=== PATIENT | male | born 1970 | race Caucasian/White ===

== ENCOUNTER 2017-09-22 05:36 | Emergency (ER) | payer OTHER ==
[~2017-09-22] VITALS: Ht 170.2 cm; Wt 77.1 kg
--- NOTE | ~2017-09-22 | EXE ---
[facility] [employer] [place] [address] STRESS ECHOCARDIOGRAM Name: CHELO PALMA Room #: REG Palak#: [id number] Admission: 09/22/17 Attend Phys: Discharge: Date of : 74 Date of Service: 09/22/17 [facility] Report #: [id number] THIS REPORT FOR: //name// APPROVED REPORT Study performed: 09/22/2017 08:28:48 Exam: Stress Echocardiogram Indication: Chest pain Patient Location: Echo lab Stress Nurse: Tory Braxton RN Room #: ER 9 Status: routine Ht: 5 ft 7 in HR: 83 bpm BP: 126/86 mmHg Medical History Medical History: HTN, Hyperlipidemia Cardiac Risk Factors: HTN, Hyperlipidemia Procedure The patient underwent an Exercise Stress Test using the Jagdish Protocol. Blood pressure, heart rate, and EKG were monitored. An Echocardiogram was performed by auto emissions technician in four stages in quad fashion. At peak stress, four selected images were obtained and placed side by side with resting images for comparison. Stress Test Details Stress Test: Exercise stress testing was performed using a Jagdish protocol. HR Resting HR: 83 bpm Max Heart Rate (APMHR): 176 bpm Max HR Achieved: 151 bpm Target HR (85% APMHR): 149 bpm % of APMHR: 85 Recovery HR: 98 bpm HR response to stress: Normal HR response to stress BP Resting BP: 126/86 mmHg Max BP: 200/90 mmHg Recovery BP: 160/100 mmHg ECG Resting ECG: Sinus Rhythm [facility] [address] [place] [address] STRESS ECHOCARDIOGRAM Name: CHELO PALMA Room #: MANPREET CASSIA Cid#: [id number] Admission: 09/22/17 Attend Phys: Discharge: Date of : 74 Date of Service: 09/22/17 [facility] Report #: [id number] Stress ECG: Sinus Tachycardia Arrhythmia: None Recovery ECG: Sinus Rhythm Clinical Reason for Termination: Maximal effort Exercise duration: 11 min 06 sec Highest Stage Achieved: Stage 4: 4.2 mph at 16% grade. Exercise capacity: 13.7 METs Overall Exercise Capacity for Age: Good Stress ECG Conclusion 1. Subjectively negative for ischemia 2. Elective cardiographic C negative for ischemia 3. Satisfactory functional capacity Pre-Stress Echo The resting Echocardiogram showed normal left ventricular contractility with an estimated Ejection Fraction of about >55%. There is concentric left ventricular hypertrophy noted Post-Stress Echo The stress Echocardiogram showed normal left ventricular contractility with an estimated Ejection Fraction of about 60-65%. Clinical Normal augmentation of myocardial wall segments using a 17 segment model. Conclusion Clinical Response: Non-ischemic Exercise Capacity: satisfactory Stress ECG Response: Non-ischemic Stress Echo Images: Non-ischemic 1. Low risk study No prior study available for comparison. Other Information Study Quality: Good <Conclusion> 1. Low risk study <ELECTRONICALLY SIGNED> By: Tyrone Ballard MD 09/22/17 1007 1007 1007 Tyrone Ballard MD /INF
--- NOTE | ~2017-09-22 | EKG ---
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 Technologist: Melissa MAURICIO : 1970 Requested By: Edilson Nogueira Order Number: [id number] MD: Canelo Echeverria Measurements Intervals [place] Rate: 83 P: -4 MD: 193 QRS: -10 QRSD: 105 T: 19 QT: 386 QTc: 454 Interpretive Statements Sinus rhythm ST elev, probable normal early repol pattern No previous ECG available for comparison Electronically Signed On 09-22-2017 7:54:00 CDT by Canelo Echeverria [email or web address] <ELECTRONICALLY SIGNED> By: Canelo Echeverria MD 09/22/17 0754 0534 0534 Canelo Echeverria MD /STEFANIE
[2017-09-22 05:53] LABS: ABSOLUTE NEUTROPHILS 10.1 thou/uL (1.4-8.2); BASOPHILS 0.7 % (0.0-2.0); EOSINOPHILS 3.5 % (0.0-3.0); HEMOGLOBIN 12.6 gm/dL (14.0-18.0); LYMPHOCYTES 16.7 % (24.0-44.0); MCH 31.2 pg (26.0-34.0); MCHC 33.2 g/dL (28.0-37.0); MCV 93.9 fL (80.0-100.0); MONOCYTES 3.9 % (1.0-8.0); PLATELET COUNT 174 thou/uL (150-400); POLYS 75.2 % (36.0-66.0); RBC 4.04 mil/uL (4.50-6.00); RDW 12.6 % (10.5-14.5); WBC 13.5 thou/uL (4.0-11.0)
[2017-09-22] MEDS ORDERED: LIPITOR 20 MG T20 M1 PO (05:58)
[2017-09-22] MEDS ORDERED: ALLOPURINOL 10100 M1 PO (05:58)
[2017-09-22] MEDS ORDERED: LOPRESSOR25 PO (06:00)
[2017-09-22] MEDS ORDERED: RENVELA800 MG PO (06:01)
[2017-09-22] MEDS ORDERED: RENAL VITAMIN0.8 MG PO (06:01)
[2017-09-22 06:02] LABS: ANION GAP 10 mmol/L (7-16); BUN 26 mg/dL (7-18); CALCIUM 9.8 mg/dL (8.5-10.1); CHLORIDE 97 mmol/L (98-107); CO2 29 mmol/L (21-32); CREATININE 7.5 mg/dL (0.7-1.3); GLUCOSE 117 mg/dL (74-106); POTASSIUM 3.9 mmol/L (3.5-5.1); SODIUM 136 mmol/L (136-145)
[2017-09-22 06:11] LABS: SGOT 19 U/L (15-37); SGPT 33 U/L (30-65); TOTAL BILIRUBIN 0.6 mg/dL (<0.1-1.0); TROPONIN-I < 0.04 ng/mL (<0.06)
[2017-09-22] MEDS ORDERED: PROTONIX40 M1 PO (10:40)
[2017-09-22 10:53] VITALS: BP 129/84
== END 2017-09-22 10:55 | disposition still patient (30) ==
LOC: ER 05:36
PROVIDERS: Emergency Medicine
DX: R07.9 Chest pain, unspecified (principal); E78.00 Pure hypercholesterolemia, unspecified; I10 Essential (primary) hypertension; Z88.8 Allergy status to other drugs, medicaments and biological substances; Z91.013 Allergy to seafood

== ENCOUNTER 2017-10-23 13:36 | Inpatient (IN) | payer OTHER ==
[~2017-10-23] VITALS: Ht 170.2 cm; Wt 77.6 kg
--- NOTE | ~2017-10-23 | EKG ---
[address] [place] [address] ELECTROCARDIOGRAM REPORT Name: CHELO PALMA Room #: 355-P ADM IN M.R.#: [id number] Admission: 10/23/17 Attend Phys: Zak Hanson MD Discharge: Date of : 74 Report #: [id number] THIS REPORT FOR: //name// [facility] ED Test Date: 2017-10-23 Test Time: 14:01:06 Pat Name: CHELO PALMA Department: Room: Gender: M Platform Builder: jldamaso : 1970 Requested By: Wade Kovacs Order Number: [id number] MD: John Hoyos Measurements Intervals [place] Rate: 86 P: 35 NM: 188 QRS: -8 QRSD: 99 T: 30 QT: 356 QTc: 426 Interpretive Statements Sinus rhythm Early repolarization Compared to ECG 09/22/2017 05:34:20 No significant changes Electronically Signed On 10-24-2017 7:55:40 CDT by John Hoyos [email or web address] <ELECTRONICALLY SIGNED> By: John Hoyos MD, [facility] 10/24/17 0755 140 00 John Hoyos MD, [facility] /EPI
--- NOTE | ~2017-10-23 | PATH ---
[facility] [address] [place] [address] PATHOLOGY RPT PROCEDURE Name: ALISON PALMA Room #: 355-P DIS IN M.R.#: [id number] Admission: 10/23/17 Date of : 74 Discharge: 10/25/17 Report #: [id number] Path Case #: [id number] [facility] Accession Number: [id number] . 01 Material submitted: . GASTRIC ULCER BX R/O H. PYLORI . 01 Clinical history: . Pre-Op DX: Atypical chest pain Post-OP DX: Gastric ulcer . 02 Diagnosis: Gastric mucosa, gastric ulcer rule out H. pylori, endoscopic biopsy: - Moderate reactive gastropathy with villous architecture and focal intestinal metaplasia (please see comment). - Negative for atrophy or dysplasia. - Negative for Helicobacter pylori (properly controlled immunohistochemical stain performed). (IUV:david; 10/27/2017) QMS/10/27/2017 . 02 Comment: The small bowel-type architecture with focal intestinal metaplasia may be a sampling of the gastric mucosa from the "pyloric outlet". Please correlate with endoscopic findings. . 02 Electronically signed: . Kirstie Siu MD, Pathologist NPI- [id number] . 01 Gross description: . Received in formalin labeled "Alison Palma, gastric ulcer BX, rule out H. pylori," are 3 segments of landin soft tissue measuring 1.3 x 0.5 x 0.3 cm in aggregate dimensions and ranging from 0.4 to 0.5 cm in maximum dimension. The specimen is submitted entirely in cassette A1. (TSD; 10/25/2017) TOB/TOB . 02 Pathologist provided ICD-10: K31.9 . 02 CPT . 118468, W91886 Performed at: [address] [id number] MD Stan Lynch MD Phone: [phone] [facility] [address] [place] [address] PATHOLOGY RPT PROCEDURE Name: ALISON PALMA Room #: 355-P [facility] IN M.R.#: [id number] Admission: 10/23/17 Date of : 74 Discharge: 10/25/17 Report #: [id number] Path Case #: [id number] Performed at: 02 [facility] [address] [place], [place] [id number] MD Kirstie Siu MD Phone: [phone]
--- NOTE | ~2017-10-23 | 2DMMODE ---
[facility] [address] [employer] [place] [address] 2 D/M-MODE ECHOCARDIOGRAM Name: CHELO PALMA Room #: 355-P ADM IN M.R.#: [id number] Admission: 10/23/17 Attend Phys: Zak Hanson, Discharge: Date of : 74 Date of Service: 10/24/17 1117 Report #: [id number] THIS REPORT FOR: //name// APPROVED REPORT Study performed: 10/24/2017 10:34:56 EXAM: Comprehensive 2D, Doppler, and color-flow Echocardiogram Patient Location: Echo lab Room #: 355 Status: routine BSA: 1.89 HR: 81 bpm BP: 120/79 mmHg Rhythm: NSR Other Information Study Quality: Good Indications Chest pain, possible pericarditis, pericardial fluid noted on CT, new onset Afib. Hx: HTN, HLP, ESRD 2D Dimensions RVDd: 37.45 mm LVEF(%): 70.36 (>50%) IVSd: 12.31 (7-11mm) LVOT Diam: 22.84 (18-24mm) LVDd: 47.32 mm PWd: 11.80 (7-11mm) Ascending Ao: 31.42 (22-36mm) LVDs: 28.48 (25-40mm) Aortic Root: 34.52 mm Feliciano's LVEF: 70.36 % Volumes Left Atrial Volume (Systole) Single Plane 4CH: 43.58 mL Single Plane 2CH: 80.50 mL LA ESV Index: 34.00 mL/m2 Aortic Valve AoV Peak Mariusz.: 1.47 m/s AO Peak Gr.: 8.59 mmHg LVOT Max P.03 mmHg LVOT Max V: 1.33 m/s DANIELLE Vmax: 3.71 cm2 Mitral Valve E/A Ratio: 1.4 [facility] [place] [address] 2 D/M-MODE ECHOCARDIOGRAM Name: CHELO PALMA Room #: 355-P [facility] IN ..#: [id number] Admission: 10/23/17 Attend Phys: Zak Hanson, Discharge: Date of : 74 Date of Service: 10/24/17 1117 Report #: [id number] MV Decel. Time: 189.58 ms MV E Max Mariusz.: 0.82 m/s MV A Mariusz.: 0.60 m/s MV PHT: 54.98 ms IVRT: 86.51 ms Pulmonary Valve PV Peak Mariusz.: 1.10 m/s PV Peak Gr.: 4.86 mmHg Pulmonary Vein P Vein S: 0.51 m/s P Vein D: 0.56 m/s P Vein S/D Ratio: 0.91 Tricuspid Valve TR Peak Mariusz.: 1.81 m/s RAP Estimate: 5.00 mmHg TR Peak Gr.: 13.11 mmHg PA Pressure: 18.00 mmHg Left Ventricle The left ventricle is normal size. There is normal LV segmental wall motion. Mild concentric left ventricular hypertrophy. Left ventricular systolic function is normal. LVEF is 60%. The left ventricular diastolic function is normal. Right Ventricle The right ventricle is normal size. The right ventricular systolic function is normal. Atria The left atrium size is normal. The right atrium size is normal. Aortic Valve The aortic valve is normal in structure. No aortic regurgitation is present. There is no aortic valvular stenosis. Mitral Valve The mitral valve is normal in structure. Trace mitral regurgitation. Tricuspid Valve The tricuspid valve is normal in structure. Trace tricuspid regurgitation. Estimated PAP is 18mmHg. Pulmonic Valve [address] [address] 2 D/M-MODE ECHOCARDIOGRAM Name: CHELO PALMA Room #: 355-P [facility].#: [id number] Admission: 10/23/17 Attend Phys: Zka Hanson, Discharge: Date of : 74 Date of Service: 10/24/17 1117 Report #: [id number] The pulmonary valve is normal in structure. Trace pulmonic regurgitation. Great Vessels The aortic root is normal in size. The ascending aorta is normal in size. IVC is normal in size and collapses >50% with inspiration. Pericardium Trace to small pericardial effusion noted. <Conclusion> The left ventricle is normal size. Mild concentric left ventricular hypertrophy. LVEF is 60%. The left ventricular diastolic function is normal. The right ventricle is normal size. The left atrium size is normal. The aortic valve is normal in structure. Trace mitral regurgitation. Trace tricuspid regurgitation. Estimated PAP is 18mmHg. Trace to small pericardial effusion noted. <ELECTRONICALLY SIGNED> By: Vidal Robles MD, FACC 10/24/17 1117 16 16 Vidal Robles MD, FACC /INF
--- NOTE | ~2017-10-23 | P ---
[facility] [place] [address] PROCEDURE REPORT Name: CHELO PALMA Room #: 355-P ADM IN M.R.#: [id number] Admission: 10/23/17 Attend Phys: Zak Hanson MD Discharge: Date of : 74 Report #: [id number] THIS REPORT FOR: //name// CC: Rafat Hanson Physician staff SONIA García MD DATE OF SERVICE: 10/25/2017 BRIEF HISTORY: The patient is a 46-year-old male with atypical chest pain. He was seen in the Emergency Room 3-4 weeks ago and given pantoprazole. In spite of using pantoprazole, he was admitted recently with atypical chest pain and upper abdominal pain with burning-type symptoms. PREOPERATIVE DIAGNOSIS: Atypical chest pain and upper abdominal pain. POSTOPERATIVE DIAGNOSIS: Two small antral ulcers, nonbleeding. MEDICATIONS: Deep sedation with propofol per anesthesia. SPECIMEN: Biopsies of ulcers. ESTIMATED BLOOD LOSS: 3 mL PROCEDURE: Esophagogastroduodenoscopy with biopsy. FINDINGS: Prior to propofol sedation, procedure of upper endoscopy was discussed with the patient as well as potential risks and its complications. He indicates he understands and desires to proceed. With the patient in left lateral decubitus position, the Olympus video endoscope was inserted in the cervical esophagus under direct vision without difficulty. Examination of this organ through its entire length revealed normal esophageal mucosa down the squamocolumnar junction. Squamocolumnar junction was carefully examined, and there was no evidence of esophagitis or Box mucosa. Hiatus hernia was not seen. The scope was advanced in the stomach, which was examined on end view as well as retroflexed views. In the antrum, there were 2 punctate ulcers in the prepyloric antrum. This may be significant as the patient has been on pantoprazole for 3-4 weeks at this time. It is possible these may have been larger in the past. They had a benign appearance and biopsies were obtained. Examination of the remainder of the stomach on end view as well as retroflexed views revealed normal mucosa. Examination of the proximal stomach on retroflexed views did not reveal any mass lesions. The pylorus, duodenal bulb and postbulbar sweep were all inspected and noted to be unremarkable. At [address] [address] PROCEDURE REPORT Name: CHELO PALMA Room #: 355-P [facility] IN M.R.#: [id number] Admission: 10/23/17 Attend Phys: Zak Hanson MD Discharge: Date of : 74 Report #: [id number] that point, the scope was slowly withdrawn and careful circumferential views confirmed the above findings. The patient tolerated the procedure well. CONDITION OF THE PATIENT UPON DISCHARGE: Following procedure, the patient drowsy, aroused and conversant and will be discharged home when fully ambulatory. DISPOSITION: Two small ulcers identified. We will have him continue pantoprazole. Burning symptoms are suggestive of peptic mucosal disease or reflux disease. Esophagitis was not seen today. He possibly may have had esophagitis, which has healed since starting pantoprazole. However, he has more pain, I would consider ultrasound of the abdomen for further evaluation of his symptoms. We will follow up on biopsies and make further recommendations. <ELECTRONICALLY SIGNED> By: Bon Gary MD 10/25/17 1710 1214 1226 Bon Gary MD /nt
--- NOTE | ~2017-10-23 | HC ---
[facility] [place] [address] CONSULTATION Name: CHELO PALMA Room #: 355-P ADM IN M.R.#: [id number] Admission: 10/23/17 Attend Phys: Zak Hanson MD Discharge: Date of : 74 Report #: [id number] THIS REPORT FOR: //name// CC: Zak Hanson Physician staff SONIA MARIN REASON FOR CONSULTATION: End-stage renal disease. HISTORY OF PRESENT ILLNESS: A 46-year-old with past medical history of hypertension who has been on dialysis for the last few years. He dialyzes every Tuesday, Tuesday and Tuesday. He presented with some chest discomfort, inability to lay down. He reported orthopnea. This has been going on with him for the last couple of weeks. No associated nausea or vomiting. It is somewhat relieved by leaning forward. He denies fever. No contact with sick people. He was evaluated by the ER staff a couple of days ago and a stress cardiac echo was negative. He did have some GI illness in the form of heartburn and was told that he had reflux and was given Protonix. He never had any similar episodes like the symptoms that he presented with yesterday. He has never had any cardiac catheterization, EGD in the past. No reported hematemesis or melena. No radiation of his chest discomfort. No palpitation. No dizziness. PAST MEDICAL HISTORY: 1. Hypertension. 2. End-stage renal disease, maintained on hemodialysis. 3. Hyperlipidemia. 4. AV fistula. MEDICATIONS: 1. Metoprolol. 2. Renvela. 3. Lipitor. ALLERGIES: SHELLFISH. SOCIAL HISTORY: He is still working. No drug or alcohol abuse. REVIEW OF SYSTEMS: GENERAL: No fever or chills. CARDIOVASCULAR: As per the history of present illness. PULMONARY: No cough or hemoptysis. GASTROINTESTINAL: Occasional heartburn, but no nausea or vomiting. GENITOURINARY: He is still making urine. No frequency, no urgency. MUSCULOSKELETAL: No back pain, no morning stiffness. SKIN: No rash or ulcerations. NEUROLOGICAL: No headache, no dizziness. [facility] [address] [place] [address] CONSULTATION Name: CHELO PALMA Room #: 355-P [facility] IN .R.#: [id number] Admission: 10/23/17 Attend Phys: Zak Hanson MD Discharge: Date of : 74 Report #: [id number] FAMILY HISTORY: Significant for hypertension. PHYSICAL EXAMINATION: GENERAL: He is alert, oriented, in no apparent distress. VITAL SIGNS: Blood pressure 120/79, temperature 36.4. HEAD AND NECK: No jugular venous distention, no bruit, no thyromegaly. CHEST: Clear to auscultation bilaterally. CARDIOVASCULAR: Regular with no rub. ABDOMEN: Soft, nontender with no hepatosplenomegaly. LOWER EXTREMITIES: No edema. LABORATORY DATA: Reviewed. White blood cell count 8, hemoglobin 10. Sodium 137, potassium 4.8, BUN 53, creatinine 12.3. CT of the chest revealed lower lung patchy infiltrate. Mild cardiomegaly. Cardiac echo pending. ASSESSMENT, IMPRESSION AND PLAN: 1. End-stage renal disease. 2. Hypertension. 3. Hyperlipidemia. 4. Chest pain and shortness of breath of unclear source. 5. Agree with the cardiac echo evaluation to evaluate the pericardium. 6. Resume his blood pressure medications. 7. Cultures were obtained and coverage for antibiotic was initiated. 8. GI evaluation. 9. Dialysis will be arranged today. 10. Discontinue colchicine. 11. Discontinue ibuprofen. 12. No further Toradol. 13. We will continue to follow along. <ELECTRONICALLY SIGNED> By: Rafat Spence MD 10/25/17 0924 0758 0957 Rafat Spence MD /nt
--- NOTE | ~2017-10-23 | EKG ---
[address] [address] ELECTROCARDIOGRAM REPORT Name: CHELO PALMA Room #: 355-P ADM IN M.R.#: [id number] Admission: 10/23/17 Attend Phys: Zak Hanson MD Discharge: Date of : 74 Report #: [id number] THIS REPORT FOR: //name// [facility] Test Date: 2017-10-24 Test Time: 09:03:35 Pat Name: CHELO PALMA Department: Room: 355 P Gender: M Choir Singer: : 1970 Requested By: Zak Hanson Order Number: [id number] MD: John Hoyos Measurements Intervals [place] Rate: 120 P: IA: QRS: 1 QRSD: 102 T: 31 QT: 348 QTc: 492 Interpretive Statements Atrial fibrillation Borderline prolonged QT interval Compared to ECG 10/23/2017 14:01:06 Sinus rhythm no longer present Electronically Signed On 10-24-2017 17:04:16 CDT by John Hoyos [email or web address] <ELECTRONICALLY SIGNED> By: John Hoyos MD, [facility] 10/24/17 1704 2 2 John Hoyos MD, [facility] /EPI
[~2017-10-23 13:36] MED LIST: ALLOPURINOL 10100 M1 PO; LIPITOR 20 MG T20 M1 PO; LOPRESSOR25 PO; PROTONIX40 M1 PO; RENAL VITAMIN0.8 MG PO; RENVELA800 MG PO
[2017-10-23 13:44] VITALS: BP 160/88
[2017-10-23 14:39] LABS: ABSOLUTE NEUTROPHILS 5.5 thou/uL (1.4-8.2); BASOPHILS 0.5 % (0.0-2.0); EOSINOPHILS 4.5 % (0.0-3.0); HEMOGLOBIN 10.2 gm/dL (14.0-18.0); LYMPHOCYTES 18.4 % (24.0-44.0); MCH 31.8 pg (26.0-34.0); MCHC 33.9 g/dL (28.0-37.0); MCV 93.7 fL (80.0-100.0); MONOCYTES 8.1 % (1.0-8.0); PLATELET COUNT 151 thou/uL (150-400); POLYS 68.5 % (36.0-66.0); RDW 12.6 % (10.5-14.5)
[2017-10-23 14:53] LABS: ANION GAP 10 mmol/L (7-16); BUN 53 mg/dL (7-18); CALCIUM 9.9 mg/dL (8.5-10.1); CHLORIDE 101 mmol/L (98-107); CO2 26 mmol/L (21-32); CREATININE 12.3 mg/dL (0.7-1.3); GLUCOSE 127 mg/dL (74-106); POTASSIUM 4.8 mmol/L (3.5-5.1); SODIUM 137 mmol/L (136-145)
[2017-10-23 14:56] LABS: ALBUMIN 3.8 g/dL (3.4-5.0); DIRECT BILIRUBIN 0.1 mg/dL (<0.1-0.3); TOTAL BILIRUBIN 0.5 mg/dL (<0.1-1.0); TOTAL PROTEIN 7.4 g/dL (6.4-8.2)
[2017-10-23 15:03] LABS: TROPONIN-I <0.06 ng/mL (<0.06)
[2017-10-23 20:36] VITALS: BP 144/90
[2017-10-23 21:02] VITALS: BP 156/103
[2017-10-23 21:22] VITALS: BP 148/101; BP 15/101
[2017-10-24 00:17] VITALS: BP 154/100
[2017-10-24 03:45] VITALS: BP 125/77
[2017-10-24 03:50] VITALS: BP 126/57
[2017-10-24 07:53] VITALS: BP 120/79
[2017-10-24 19:55] VITALS: BP 142/86
[2017-10-24 23:37] VITALS: BP 142/86
[2017-10-25 03:41] VITALS: BP 123/79
[2017-10-25 08:09] VITALS: BP 137/91
[2017-10-25] MEDS ORDERED: CEFUROXIME250 MG PO (08:53)
[2017-10-25 16:10] VITALS: BP 135/93
[2017-10-25 16:48] VITALS: BP 137/91
[2017-10-25] MEDS ORDERED: PROTONIX40 M1 PO (17:10)
[2017-10-25 19:28] VITALS: BP 149/92
== END 2017-10-25 20:45 | disposition home or self-care (01) | DRG 308 ==
LOC: ER 13:36 → 3W 20:05 → EROBS 20:05 → 3W 21:06
PROVIDERS: Emergency Medicine
PROC: 5A1D70Z Performance of Urinary Filtration, Intermittent, Less than 6 Hours Per Day (ICD-10-PCS; principal; 2017-10-24)
PROC: 0DB68ZX Excision of Stomach, Via Natural or Artificial Opening Endoscopic, Diagnostic (ICD-10-PCS; 2017-10-25)
DX: I48.91 Unspecified atrial fibrillation (principal); N18.6 End stage renal disease; J18.9 Pneumonia, unspecified organism; K25.4 Chronic or unspecified gastric ulcer with hemorrhage; I31.9 Disease of pericardium, unspecified; I12.0 Hypertensive chronic kidney disease with stage 5 chronic kidney disease or end stage renal disease; I08.1 Rheumatic disorders of both mitral and tricuspid valves; E78.5 Hyperlipidemia, unspecified; D64.9 Anemia, unspecified; K21.9 Gastro-esophageal reflux disease without esophagitis; E78.00 Pure hypercholesterolemia, unspecified; Z79.899 Other long term (current) drug therapy; Z99.2 Dependence on renal dialysis; Z88.8 Allergy status to other drugs, medicaments and biological substances; Z91.013 Allergy to seafood
CPT/HCPCS: 10879; 32100; 62110; 62900; 70005